=== PATIENT | female | born 1995 | race African-American/Black ===

== ENCOUNTER 2024-10-29 11:30 | Emergency (ER) | payer BC, MEDICAID ==
[~2024-10-29] VITALS: Ht 165.1 cm; Wt 121.5 kg
[2024-10-29 11:31] VITALS: PULSE 116; O2SAT 99
[2024-10-29 11:41] VITALS: BP 148/98; RESP 18; TEMP 98.3; O2SAT 98
[2024-10-29] MEDS ORDERED: AMOX1TAB16 MT (11:56)
== END 2024-10-29 12:12 | disposition home or self-care (01) ==
LOC: ER 11:55
DX: K04.7 Periapical abscess without sinus (principal)
CPT/HCPCS: 99283